=== PATIENT | female | born 1985 | race Hispanic/Latino ===

== ENCOUNTER 2024-10-30 10:00 | Emergency (ER) | payer SELFPAY ==
[2024-10-30 10:15] VITALS: BP 180/114
--- NOTE | 2024-10-30 11:03 | ED.GENMED ---
History of Present Illness
General
Chief Complaint: Abdominal Symptoms
Time Seen by Provider: 10/30/24 10:44
History of Present Illness
History of Present Illness:
39-year-old female without significant past medical history presenting to the emergency department for nausea, vomiting, diarrhea. Patient reports symptoms started last evening. Does report that she ate fast food yesterday, denies known sick
contacts. Reports abdominal cramping when symptoms are coming on. Denies any present abdominal pain. Denies history of abdominal surgeries. Denies fever. Denies any blood in the vomit or the diarrhea. Denies chest pain or difficulty breathing.
Denies additional medical complaints.
Phy Exam
Physical Exam
Physical Exam:
General: Well-appearing, no clinical signs of dehydration, nontoxic and in no acute distress
HEENT: protecting airway
Neck: appears supple
CV: Normal heart rate, regular rhythm
Resp: No accessory muscle use, no increased work of breathing, lungs clear to auscultation bilaterally
Abd: Soft and non-distended, mild tenderness to the right upper quadrant without rebound or guarding
Extremities: No deformities, no swelling, no erythema
Neuro: alert, no focal neurologic deficit
: deferred
Rectal: deferred
Psych: Normal affect
Skin: Intact
Course
Orders/Labs/Results
Orders:
Orders
10/30/24 10:54
US Abdomen Complete/Upper Urgent
Comment:
Reason For Exam: RUQ pain
10/30/24 10:55
0.9% Sodium Chloride 1000 ml [Nss] 1,000 ml IV BOLUS
Ketorolac [Toradol] 15 mg IV NOW STA
Ondansetron Injectable [Zofran] 4 mg IV NOW STA
10/30/24 11:50
Complete Blood Count/With Diff Urgent
10/30/24 12:36
Comprehensive Metabolic Panel Urgent
Lipase Urgent
10/30/24 13:31
Urinalysis Reflex To Culture Urgent
Date Specimen was Collected: 10/30/24
Time Specimen was Collected: 13:30
Abnormal Lab Results
10/30/24 10/30/24 10/30/24
11:50 12:36 13:31
WBC 14.8 H 10^3/uL
(4.8-10.8)
Absolute Neuts (auto) 13.5 H 10^3/uL
(1.4-6.5)
Absolute Lymphs (auto) 0.5 L 10^3/uL
(1.2-3.4)
Neutrophils % 91.6 H %
(42.2-75.2)
Lymphocytes % 3.5 L %
(20.5-51.1)
Creatinine 0.4 L mg/dL
(0.6-1.0)
Glucose 234 H mg/dl
(70-99)
Alkaline Phosphatase 136 H U/L
(38-126)
Urine Ketones 1+ A
(Negative)
Urine Glucose 3+ A
(Negative)
10/30/24 11:50
10/30/24 12:36
Vital Signs
Initial and Last Documented VS:
Initial Vital Signs
Temp Pulse Resp BP Pulse Ox
98.9 F 120 18 180/114 98
10/30/24 10:15 10/30/24 10:15 10/30/24 10:15 10/30/24 10:15 10/30/24 10:15
Last Documented Vital Signs
Temp Pulse Resp BP Pulse Ox
98.9 F 120 18 180/114 98
10/30/24 10:15 10/30/24 10:15 10/30/24 10:15 10/30/24 10:15 10/30/24 10:15
MDM/Problems Addressed
MDM/Problems Addressed:
39-year-old female without past medical history presenting for nausea, vomiting, diarrhea since last evening. Vital signs are normal.
On exam patient is resting comfortably, no acute distress or discomfort. Patient is nontoxic. Mild tenderness to the right upper quadrant. Symptoms appear most consistent with a viral gastroenteritis, however in the setting of right upper
quadrant pain, cholelithiasis versus cholecystitis is a consideration. Will obtain laboratory analysis and right upper quadrant ultrasound imaging. Toradol, Zofran, IV fluids administered for symptoms.
13:50 -labs show mild leukocytosis. Otherwise unremarkable. Ultrasound without significant acute pathology. Patient reports improvement of her symptoms after given therapeutics. Feel stable for discharge with continued outpatient supportive
therapy. Will drive Zofran. Return precautions discussed and patient verbalized understanding.
*Critical Care Note
Total Time (30-74mins, 75-104mins- exclusive of procedures): Not Applicable
ED Attending Note
-
Portions of this chart may have been created with voice recognition software.� Occasional wrong word or��sound alike� substitutions may have occurred due to the inherent limitations of voice recognition software.
Discharge Plan
Departure
Referrals:
NONE,* [Family Provider] -
Interventions
Interventions:
*Risk Screen - Suicide Last Done: 10/30/24 11:23
*General Assessment Last Done: 10/30/24 11:23
*Neglect/Abuse Screening Last Done: 10/30/24 11:23
ED- Fall Risk Assessment Last Done: 10/30/24 12:20
*ED COVID-19 Vaccine History Last Done: 10/30/24 11:23
OP-Irwpwb-Zsqwamduob Assessment Last Done: 10/30/24 11:25
Discharge Date and Time
Print Language: BHUTANESE
[2024-10-30 11:23] VITALS: BMI 36.1
[2024-10-30] MEDS: ZOFRAN 4 MG IV (11:50)
[2024-10-30] MEDS: TORADOL 15 MG IV (11:51)
[2024-10-30] MEDS: NSS 1000 IV (11:51)
[2024-10-30 12:00] LABS: % Basophils 0.2 % (0-2); % Eosinophils 0.4 % (0-6); % Immature Granulocytes 0.3 % (0-0.5); % Lymphocytes 3.5 % (20.5-51.1); % Neutrophils 91.6 % (42.2-75.2); Absolute Eosinophils 0.1 10^3/uL (0-0.7); Absolute Lymphocytes 0.5 10^3/uL (1.2-3.4); Absolute Monocytes 0.6 10^3/uL (0.1-0.6); Absolute Neutrophils 13.5 10^3/uL (1.4-6.5); Hemoglobin 14.3 g/dL (12.0-16.0); Mean Corpuscular Hgb 27.7 pg (27.0-31.0); Mean Corpuscular Volume 81.4 fL (81.0-99.0); Mean Platelet Volume 10.3 fL (7.4-10.4); Nucleated Red Blood Cells % 0 %; Platelet Count 329 10^3/uL (130-400); Red Blood Cell Count 5.16 10^6/uL (4.20-5.40); Red Cell Dist. Width 12.5 % (11.5-14.5); White Blood Cell Count 14.8 10^3/uL (4.8-10.8)
[2024-10-30 12:59] LABS: ALT (SGPT) 27 U/L (0-35); AST (SGOT) 28 U/L (14-36); Albumin 4.4 g/dl (3.5-5.0); Alkaline Phosphatase 136 U/L (38-126); Blood Urea Nitrogen 16 mg/dl (7-17); Calcium 8.6 mg/dl (8.4-10.2); Carbon Dioxide 22 mmol/L (22-30); Chloride 107 mmol/L (98-107); Estimated Creatinine Clearance 115 ml/min; Glucose 234 mg/dl (70-99); Lipase 84 U/L (23-300); Potassium 4.2 mmol/L (3.5-5.1); Sodium 142 mmol/L (135-145); Total Bilirubin 0.4 mg/dl (0.2-1.3); Total Protein 7.3 g/dl (6.3-8.2); eGFR > 60.00
[2024-10-30 13:53] LABS: Urine Albumin Trace (Neg - Trace); Urine Bilirubin Negative (Negative); Urine Character Clear (Clear); Urine Color Yellow; Urine Glucose 3+ (Negative); Urine Ketone 1+ (Negative); Urine Leukocyte Negative (Negative); Urine Nitrite Negative (Negative); Urine Occult Blood Negative (Negative); Urine Specific Gravity 1.015 (<1.030); Urine Urobilinogen Negative (Neg - 1+)
[2024-10-30 14:00] VITALS: BP 145/84
== END 2024-10-30 15:00 | disposition home or self-care (01) ==
LOC: EMR 10:00
PROVIDERS: EMERGENCY PHYSICIAN Student in an Organized Health Care Education/Training Program
DX: R11.2 Nausea with vomiting, unspecified (principal); R19.7 Diarrhea, unspecified; R10.11 Right upper quadrant pain
CPT/HCPCS: 96374; 96375; 96361; 99284; 76700; 80053; 81003; 83690; 85025